=== PATIENT | male | born 1995 | race Caucasian/White ===

== ENCOUNTER 2022-10-02 03:39 | Emergency (ER) | payer OTHER, SELFPAY ==
[2022-10-02 03:40] VITALS: BP 154/97; PULSE 108; RESP 15; TEMP 36.2; O2SAT 98; BMI 36.6
[2022-10-02 03:47] VITALS: BP 135/63; BP 136/80; BP 144/84; PULSE 86; PULSE 90; PULSE 95
--- NOTE | 2022-10-02 03:48 | EDS_ITS ---
HPI History of Present Illness Chief Complaint: Nausea/Vomiting Detail of Chief Complaint: Vomiting, hematemesis, diarrhea Informant: patient Narrative Narrative: Patient presents the emergency department complaint of vomiting and diarrhea that initially started around 11:40 PM. Patient states he vomited once and then had about 3 episodes of watery stool. Patient had some abdominal pain and woke up at 240 and vomited again and this time patient noticed there was blood in the vomit. Patient had eaten pizza that evening. Patient denies any significant abdominal pain currently. He denies sick contacts. He has no medical history. No prior abdominal surgeries. PFSH PFSH Medical History no medical history Home Medications ondansetron 4 mg disintegrating tablet 4 mg PO Q8H PRN PRN Nausea #10 tabs [Rx Last Taken Unknown] Allergy/AdvReac Type Severity Reaction Status Date / Time No Known Allergies Allergy Verified 10/02/22 03:48 Surgical History (Updated 10/02/22 @ 03:47 by Sravanthi Luna) [employer] teeth extracted Social History Smoking Status: Never smoker ROS ROS ED Review of Systems ROS Unobtainable: other Constitutional Constitutional ED: Reports lethargy; Denies chills, fever(s), sweats or weight loss Eyes Eyes: Denies blurry vision, change in vision or diplopia ENT ENT ED: Denies rhinorrhea or sore throat Cardiovascular Cardiovascular: Denies chest pain, orthopnea or racing heartbeat Respiratory/Chest Respiratory/Chest: Denies cough, dyspnea, dyspnea on exertion, orthopnea or sputum Gastrointestinal Gastrointestinal: Reports abdominal pain, diarrhea, nausea and vomiting Genitourinary Genitourinary ED: Denies dysuria, hematuria or urinary frequency Musculoskeletal Musculoskeletal: Denies arthralgias, back pain, myalgias or neck pain Integumentary Denies abscess, Abrasions or rash Neurologic Neurologic: Denies headache(s) or weakness Psychiatric Psychiatric: Denies anxiety, depression or suicidal thoughts Endocrine Endocrinology: Denies polydipsia, polyphagia or polyuria Hematologic/Lymphatic Hematologic/Lymphatic: Denies easy bleeding, easy bruising or lymphadenopathy Allergic/Immunologic Allergic/Immunologic ED: Denies mouth swelling, tongue swelling or urticaria EXAM Physical Exam Const Vital Signs: 10/02/22 03:40 10/02/22 03:47 Temperature 97.2 F L Temperature Source Temporal Pulse Rate 108 H Pulse Rate [Lying] 86 Pulse Rate [Sitting (for 1 minute prior to obtaining)] 90 Pulse Rate [Standing (for 1 minute prior to obtaining)] 95 Respiratory Rate 15 Blood Pressure 154/97 H Blood Pressure [Lying] 144/84 H Blood Pressure [Sitting (for 1 minute prior to obtaining)] 136/80 H Blood Pressure [Standing (for 1 minute prior to obtaining)] 135/63 H Blood Pressure Mean 116 Blood Pressure Mean [Lying] 104 Blood Pressure Mean [Sitting (for 1 minute prior to obtaining)] 98 Blood Pressure Mean [Standing (for 1 minute prior to obtaining)] 87 Pulse Ox 98 Oxygen Delivery Method Room Air Positive well nourished and well developed General Appearance ED: well developed and NAD HEENT Reports TM's clear and moist mucous membranes normocephalic and atraumatic; Negative for trauma or tenderness Tympanic Membrane ED: Yes TM's clear Eyes PERRL and EOMs intact bilaterally General Eye ED: Negative for pale conjunctiva or scleral icterus Neck no lymphadenopathy, supple and no JVD General: Negative for tenderness Chest Wall inspection of chest normal and palpation of chest normal Chest: Negative for tenderness Resp normal respiratory effort and clear to auscultation bilaterally Effort and Inspection: Negative for respiratory distress or pain with movement Auscultation: Negative for rhonchi, wheezes or diminished lung sounds Cardio regular rate, regular rhythm, S1 normal heart sound, S2 normal heart sound and no murmurs Peripheral Pulses: pulses 2+ throughout GI normal to inspection, nondistended, normoactive bowel sounds, soft to palpation, non-tender, non-distended and no masses Back/Spine no CVA tenderness and no thoracic nor lumbar tenderness Extremity normal to inspection General Extremety ED: Negative for edema General Extremity: Negative for edema Neuro oriented x3, CN's II-XII intact bilaterally, no sensory deficits noted and gait normal Sensorium / Orientation: awake, alert, oriented to person, oriented to place and oriented to time Motor Exam: strength 5/5 throughout and strength abnormal Psych mental status grossly normal Skin no rashes or lesions noted and no wounds MDM MDM MDM Narrative Medical decision making narrative: IV line established on arrival. Patient had a liter normal saline fluid bolus given. He is given Zofran 4 mg IV. CBC with differential count of 13.5 with a hemoglobin of 17 and hematocrit of 50. Platelets were 212. Chemistries unremarkable. BUN was 18 and creatinine 1.21. Orthostatic vital signs were normal. Patient had no further vomiting. At this point I suspect he likely is coming down with a viral gastroenteritis and may have had a Delilah-Thomas type tear that may of caused some bleeding/hematemesis. Patient hemodynamically stable. We will give him a prescription for Zofran. Recommended he return if persistent hematemesis with clots, abdominal pain, fever, or condition should worsen anyway. Patient given referral to primary care physician for follow-up. Lab Data Attestation: I reviewed the patient's lab results. Labs: Laboratory Results - last 24 hr 10/02/22 10/02/22 03:55 03:55 WBC 13.5 H RBC 6.04 Hgb 17.1 H Hct 50.7 MCV 83.9 MCH 28.3 MCHC 33.7 RDW Std Deviation 38.9 RDW Coeff of James 12.7 Plt Count 212 MPV 10.2 Immature Gran % (Auto) 0.400 Neut % (Auto) 92.5 H Lymph % (Auto) 3.8 L [place] % (Auto) 2.9 Eos % (Auto) 0.1 Baso % (Auto) 0.3 Absolute Neuts (auto) 12.5 H Absolute Lymphs (auto) 0.52 L Nucleated RBC % 0 Sodium 140 Potassium 3.8 Chloride 106 Carbon Dioxide 26.0 Anion Gap 8 BUN 18 Creatinine 1.21 Estim Creat Clear Calc 90.29 Est GFR (MDRD) Af Amer 94 Est GFR (MDRD) Non-Af 78 BUN/Creatinine Ratio 14.9 Glucose 136 H Calcium 9.0 Discharge Plan Triage Chief Complaint: Nausea/Vomiting ED Provider: Natalie Serna Dx/Rx/DC Orders Clinical Impression: Viral gastroenteritis, Delilah-Thomas tear, Hematemesis Instructions: Viral Gastroenteritis, Delilah-Thomas Tear, ED Upper GI Bleeding (Stable) Prescriptions: New ondansetron [ondansetron] 4 mg tablet,disintegrating 4 mg PO Q8H PRN PRN (Reason: Nausea) Qty: 10 0RF Referrals: Monika Asif MD [Med Staff - Speech Pathologist Assistant] - 3-5 Days Disposition Disposition: Home, Self Care
[2022-10-02] MEDS: Ondansetron 4 MG/2 ML Vial IV (03:55)
[2022-10-02] MEDS: 0.9% Normal Saline 1,000 ML 1000 ML IV (03:56)
[2022-10-02 04:05] LABS: Absolute Lymphocyte Count 0.52 X10^3/uL (0.83-4.51); Absolute Neutrophil Count 12.5 X10^3/uL (2.0-7.7); Basophil# 0.04 X10^3/uL; Basophil% 0.3 % (0-1); Eosinophil# 0.02 X10^3/uL; Eosinophils% 0.1 % (0-5); Hematocrit 50.7 % (40-54); Hemoglobin 17.1 g/dL (13.0-16.5); Lymphocyte # 0.52 X10^3/ul (0.83-4.51); Lymphocyte % 3.8 % (19-41); Mean Corp Hgb Conc 33.7 g/dL (32-36); Mean Corpuscular Hgb 28.3 pg (27.0-32.0); Mean Corpuscular Volume 83.9 fL (80-94); Mean Platelet Vol. 10.2 fl (6.2-12.0); Monocyte# 0.39 X10^3/uL; Monocyte% 2.9 % (0-10); NRBC Flagged by Analyzer 0 % (0-5); Neutrophil % 92.5 % (47-70); POSITIVE DIFFERENTIAL YES; Platelet Count 212 K/mm3 (150-450); RBC Distribution Width CV 12.7 % (11.6-14.6); RBC Distribution Width SD 38.9 fl (35.1-43.9); Red Blood Count 6.04 M/mm3 (4.6-6.2); White Blood Count 13.5 K/mm3 (4.4-11.0)
[2022-10-02 04:10] LABS: Differential Indicated SCAN CRITERIA MET
[2022-10-02 04:27] LABS: Anion Gap 8 (5-15); BUN 18 mg/dL (7-18); BUN/Creat Ratio 14.9 RATIO (10-20); Chloride 106 mmol/L (98-107); Creatinine, Serum 1.21 mg/dL (0.70-1.30); EST Glomerular Filtration Rate 78 mL/min (>60); Est Glom Filt Rate - Afr Amer 94 mL/min (>60); Estimated Creatinine Clearance 90.29 ml/min; Glucose 136 mg/dL (74-106); Potassium 3.8 mmol/L (3.5-5.1); Sodium Level 140 mmol/L (136-145)
[2022-10-02 04:58] VITALS: BP 144/84; PULSE 90; RESP 15; O2SAT 98
[2022-10-02 04:59] LABS: Differential Comment SCANNED
== END 2022-10-02 04:58 | disposition home or self-care (01) ==
LOC: ED 04:47
PROVIDERS: Emergency Provider Emergency Medicine; Visit Provider Emergency Medicine
DX: A08.4 Viral intestinal infection, unspecified (principal); K22.6 Gastro-esophageal laceration-hemorrhage syndrome; K92.0 Hematemesis
CPT/HCPCS: 80048; 85025; 96361; 96374; 99284; J7030; J2405